=== PATIENT | female | born 1965 | race Caucasian/White ===

== ENCOUNTER 2022-08-12 03:07 | Emergency (ER) | payer BC ==
[~2022-08-12] VITALS: Ht 160 cm; Wt 76.7 kg
[2022-08-12] MEDS ORDERED: ESTRADIOL1 EAC8 TD (03:23)
--- NOTE | 2022-08-12 20:02 | EKG ---
[facility] [address] [facility] [place] [address] Signed Sinus rhythm with occasional premature ventricular complexes Possible Anterior infarct , age undetermined Abnormal ECG No previous ECGs available Confirmed by RAJENDRA LANCASTER MD ([id number]) on 08/12/2022 8:02:43 PM Electronically Signed By: RAJENDRA LANCASTER MD 08/12/222001 PATIENT NAME: GARRETT OLSON Electrocardiogram DATE OF : 63 PHYSICIAN: RAJENDRA LANCASTER MD REPORT #: [id number] REPORT IS CONFIDENTIAL AND NOT TO BE RELEASED WITHOUT AUTHORIZATION
== END 2022-08-12 04:38 | disposition home or self-care (01) ==
LOC: ED 03:07
DX: I80.8 Phlebitis and thrombophlebitis of other sites (principal); R07.9 Chest pain, unspecified; Z88.0 Allergy status to penicillin; Z79.899 Other long term (current) drug therapy
CPT/HCPCS: 36415; 71045; 80053; 84484; 85025; 85379; 93005; 93010; 93971; 99285-25